=== PATIENT | female | born 1975 ===

== ENCOUNTER 2017-07-24 07:36 | Day surgery (SDC) | payer OTHER ==
[2017-07-24] MEDS: Lactated Ringer's 500 ML IV ONE (07:57)
[2017-07-24] MEDS ORDERED: Propofol 10 mg/ml Inj (20 ML) ONE (09:18)
[2017-07-24] MEDS ORDERED: Lidocaine 2% MPF (5 ml) Inj ONE (09:19)
[2017-07-24 09:40] VITALS: TEMP 97.9
[2017-07-24 09:48] VITALS: BP 121/72; PULSE 64; RESP 23; O2SAT 100
== END 2017-07-24 09:53 | disposition home or self-care (01) ==
LOC: H.ENDO 07:36
PROVIDERS: ATTEND Internal Medicine Gastroenterology
DX: Z12.11 Encounter for screening for malignant neoplasm of colon (principal); E03.9 Hypothyroidism, unspecified; K64.0 First degree hemorrhoids
CPT/HCPCS: 45378; J2704; J7120